=== PATIENT | female | born 1955 | race African-American/Black ===

== ENCOUNTER 2024-10-20 17:52 | Inpatient (IN) | payer MEDICARE ==
[~2024-10-20] VITALS: Ht 162.6 cm; Wt 68.0 kg
[2024-10-20] MEDS ORDERED: DEXTROSE 50% SYRINGE 50 ML IV ONE (18:54)
[2024-10-20] MEDS ORDERED: BACITRACIN ZINC 0.9GM TP ONE (19:43)
[2024-10-20] MEDS: DEXTROSE 50% SYRINGE 50 ML IV ONE (19:58)
[2024-10-20] MEDS: BACITRACIN ZINC 0.9GM TP ONE (20:06)
[2024-10-20 20:07] LABS: T3 UPTAKE 30.5 % (22.5-37.0)
[2024-10-20] MEDS ORDERED: LORAZEPAM INJ 2 MG/ML VIAL IM ONE (20:30)
[2024-10-20 21:00] VITALS: PULSE 74; RESP 18; TEMP 97.1
[2024-10-20] MEDS: LORAZEPAM INJ 2 MG/ML VIAL IM ONE (21:27)
[2024-10-20] MEDS: DEXTROSE 5%/0.9% SOD CHL 1,000 ML IV SCH (22:47)
[2024-10-20 22:58] VITALS: BP 101/81; PULSE 58; RESP 18; TEMP 96.8; O2SAT 100
[2024-10-21] VITALS (11 sets, daily range): BP systolic 101–194; BP diastolic 62–94; PULSE 51–87; RESP 16–18; TEMP 96.3–97.9; O2SAT 95–100
[2024-10-21] MEDS ORDERED: MIRALAX17 GM PO (01:36)
[2024-10-21] MEDS ORDERED: OLANZAPINE5 MG PO (01:36)
[2024-10-21] MEDS ORDERED: TRAZODONE HCL50 MG PO (01:36)
[2024-10-21] MEDS ORDERED: ACETAMINOPHEN325 M1 PO (01:36)
[2024-10-21] MEDS ORDERED: FUROSEMIDE20 MG PO (01:36)
[2024-10-21] MEDS ORDERED: HYDROCORTISONE5 MG PO (01:36)
[2024-10-21] MEDS ORDERED: LEVOTHYROXINE137 MCG PO (01:36)
[2024-10-21] MEDS ORDERED: CENTRUM ADULTS1 EACH PO (01:36)
[2024-10-21] MEDS ORDERED: VENELEX OINTMEN60 GM TOP (01:36)
[2024-10-21 05:39] LABS: BASOPHILS % 0.5 % (0.0-1.0); EOSINOPHILS % 2.0 % (0.0-6.0); LYMPHOCYTES % 38.4 % (18.0-39.1); MONOCYTES % 17.2 % (4.4-11.3); NEUTROPHILS % 41.9 % (38.7-80.0); RED CELL DISTRIBUTION WIDTH 15.1 % (11.7-14.4)
[2024-10-21 06:03] LABS: EST GLOMERULAR FILTRATION RATE 79.0 ML/MIN (>=60); PHOSPHORUS 2.1 MG/DL (2.3-4.7)
[2024-10-21] MEDS ORDERED: BACITRACIN ZINC 15 GM OINT TOP SCH (09:00)
[2024-10-21] MEDS: POTASSIUM CHLORIDE 20MEQ/100ML 100 ML IV SCH (10:02)
[2024-10-21 11:39] LABS: % IRON SATURATION 55.0 % (15-50)
[2024-10-21] MEDS: POTASSIUM CHL 40 MEQ in DEXTROSE 5%/0.45% SOD CHL 1,000 ML IV SCH (13:03)
[2024-10-21] MEDS: MAGNESIUM SULF 1GRAM/DEXTROSE 100 ML IV ONE (13:07)
[2024-10-21] MEDS: DEXTROSE 50% SYRINGE 50 ML IV PRN (15:07)
[2024-10-21] MEDS: DEXTROSE 50% SYRINGE 50 ML IV ONE (15:49)
[2024-10-21 16:27] LABS: EST GLOMERULAR FILTRATION RATE 76.0 ML/MIN (>=60)
[2024-10-21 17:43] LABS: AMPHETAMINES SCREEN,URINE NEGATIVE (NEGATIVE); CANNABINOIDS SCREEN,URINE NEGATIVE (NEGATIVE); COCAINE SCREEN,URINE NEGATIVE (NEGATIVE); METHADONE SCREEN, URINE NEGATIVE (NEGATIVE); OPIATES SCREEN,URINE NEGATIVE (NEGATIVE)
[2024-10-21 17:53] LABS: LEUKOCYTE ESTERASE ,URINE TRACE (NEGATIVE); PROTEIN,URINE DIPSTICK 1+ (NEGATIVE); URINE UROBILINOGEN 0.2 mg/dL (0.2 - 1)
[2024-10-21 18:00] LABS: WBC,URINE (MAN) 0-5 /HPF (0-5)
[2024-10-21 18:01] LABS: EPITHELIAL CELLS,URINE RARE /LPF; YEAST,URINE FEW
[2024-10-22] VITALS: BP 147/83; PULSE 57; RESP 17; TEMP 97.9; O2SAT 98
[2024-10-22 04:00] VITALS: BP 142/78; PULSE 64; RESP 18; TEMP 97.6; O2SAT 100
[2024-10-22] MEDS: DEXTROSE 50% SYRINGE 50 ML IV ONE (04:49)
[2024-10-22 05:37] LABS: BASOPHILS % 0.5 % (0.0-1.0); EOSINOPHILS % 1.8 % (0.0-6.0); LYMPHOCYTES % 39.2 % (18.0-39.1); MONOCYTES % 9.0 % (4.4-11.3); NEUTROPHILS % 49.5 % (38.7-80.0); RED CELL DISTRIBUTION WIDTH 15.4 % (11.7-14.4)
[2024-10-22 05:55] LABS: EST GLOMERULAR FILTRATION RATE 82.0 ML/MIN (>=60)
[2024-10-22 08:00] VITALS: BP_SYST 140; BP_SYST 142; BP_DIAS 78; BP_DIAS 85; PULSE 53; PULSE 64; RESP 16; RESP 18; TEMP 96; TEMP 97.6; O2SAT 100
[2024-10-22] MEDS: POTASSIUM CHLORIDE 40 MEQ in DEXTROSE 5%/0.45% SOD CHL 1,000 ML IV SCH (08:00)
[2024-10-22 12:00] VITALS: BP 134/81; PULSE 55; RESP 16; TEMP 94.9; O2SAT 100
[2024-10-22] MEDS: POTASSIUM CHLORIDE 20 MEQ TAB CR PO STA ×2 (15:55→16:00)
[2024-10-22 20:00] VITALS: BP 145/89; PULSE 60; RESP 18; TEMP 97.9; O2SAT 100
[2024-10-23] VITALS: BP 153/93; PULSE 56; RESP 18; TEMP 97.6; O2SAT 100
[2024-10-23 04:00] VITALS: BP 135/97; PULSE 52; RESP 20; TEMP 97; O2SAT 100
[2024-10-23 08:00] VITALS: BP 143/91; PULSE 51; RESP 16; O2SAT 100
[2024-10-23 08:23] VITALS: BP 135/97; PULSE 52; RESP 20; TEMP 97; O2SAT 100
[2024-10-23] MEDS ORDERED: LEVOTHYROXINE SODIUM 112 MCG TAB PO SCH (09:30)
[2024-10-23] MEDS: LEVOTHYROXINE SODIUM 112 MCG TAB PO SCH (09:52)
[2024-10-23] MEDS: LEVOTHYROXINE SODIUM 25 MCG TABLET PO SCH (09:52)
[2024-10-23 12:00] VITALS: BP 131/86; PULSE 56; RESP 18; TEMP 98.2; O2SAT 100
[2024-10-23 16:00] VITALS: BP 173/98; PULSE 61; RESP 20; O2SAT 100
[2024-10-23] MEDS: ONDANSETRON HCL 4 MG ORAL DISINTEGRATING TAB PO PRN (18:50)
[2024-10-24 04:51] VITALS: BP 119/65; PULSE 61; RESP 16; TEMP 97.4; O2SAT 100
[2024-10-24 06:30] LABS: EST GLOMERULAR FILTRATION RATE 92.0 ML/MIN (>=60)
[2024-10-24 08:00] VITALS: BP 119/65; PULSE 61; RESP 16; TEMP 97.4; O2SAT 100
[2024-10-24] MEDS: DEXTROSE 5%/0.45% SOD CHL 1,000 ML IV SCH (08:33)
[2024-10-24] MEDS: ENOXAPARIN SOD INJ 40 MG/0.4 ML SYR SC SCH (08:49)
[2024-10-24 09:24] VITALS: BP 117/94; PULSE 64; RESP 18; TEMP 97.2; O2SAT 99
[2024-10-24 11:52] VITALS: BP 146/93; PULSE 69; RESP 18; TEMP 97.3; O2SAT 99
[2024-10-24] MEDS: DEXTROSE 37.5 GM GEL..GRAM. PO SCH (12:00)
[2024-10-24 16:52] VITALS: BP 168/103; PULSE 57; RESP 18; TEMP 97.2; O2SAT 99
[2024-10-24 17:46] LABS: BASOPHILS % 0.5 % (0.0-1.0); EOSINOPHILS % 2.0 % (0.0-6.0); LYMPHOCYTES % 35.1 % (18.0-39.1); MONOCYTES % 5.9 % (4.4-11.3); NEUTROPHILS % 56.5 % (38.7-80.0); RED CELL DISTRIBUTION WIDTH 15.2 % (11.7-14.4)
[2024-10-24 20:00] VITALS: BP 149/98; PULSE 60; RESP 18; TEMP 97; O2SAT 100
[2024-10-25] VITALS: BP 178/102; PULSE 63; RESP 18; TEMP 97.6; O2SAT 96
[2024-10-25 04:00] VITALS: BP 152/84; PULSE 57; RESP 18; TEMP 97.9; O2SAT 99
[2024-10-25] MEDS: LEVOTHYROXINE SODIUM 50 MCG TAB PO SCH (06:43)
[2024-10-25 07:58] LABS: BASOPHILS % 0.5 % (0.0-1.0); EOSINOPHILS % 1.6 % (0.0-6.0); LYMPHOCYTES % 52.6 % (18.0-39.1); MONOCYTES % 6.8 % (4.4-11.3); NEUTROPHILS % 38.5 % (38.7-80.0); RED CELL DISTRIBUTION WIDTH 15.3 % (11.7-14.4)
[2024-10-25 08:00] VITALS: BP 167/113; PULSE 62; RESP 21; O2SAT 100
[2024-10-25 08:31] LABS: EST GLOMERULAR FILTRATION RATE 91 ML/MIN (>=60)
[2024-10-25 09:00] VITALS: BP 152/84; PULSE 57; RESP 18; TEMP 97.9; O2SAT 99
[2024-10-25 09:53] LABS: EOSINOPHILS % (MANUAL) 3 % (0-7); LYMPHOCYTES % (MANUAL) 56 % (19-48); MONOCYTES % (MANUAL) 4 % (3.4-9.0); NEUTROPHILS % (MANUAL) 37 % (40-74)
[2024-10-25 09:54] LABS: PLATELET ESTIMATE SLIGHTLY DECREASED; PLATELET MORPHOLOGY COMMENT NORMAL
[2024-10-25] MEDS: HYDRALAZINE HCL 10 MG TAB PO PRN (10:00)
[2024-10-25 12:00] VITALS: BP 151/98; PULSE 61; RESP 18; O2SAT 100
[2024-10-25] MEDS ORDERED: LANCET 30G-GLU1 EACH (17:57)
[2024-10-25] MEDS ORDERED: ACCU-CHEK GUID1 EAC2 SC (17:57)
[2024-10-25] MEDS ORDERED: GLUTOSE 1537.5 GM PO (17:57)
[2024-10-26 11:47] LABS: INSULIN 2.2 uIU/mL (2.6-24.9)
== END 2024-10-25 19:44 | disposition home health service (06) | DRG 640 ==
LOC: FSED 17:58 → ERHOLD 21:00 → MED/SURG 22:41
PROVIDERS: ADMIT Family Medicine Adult Medicine; ATTEND Family Medicine Adult Medicine
PROC: 02HV33Z Insertion of Infusion Device into Superior Vena Cava, Percutaneous Approach (ICD-10-PCS; principal; 2024-10-25)
DX: E16.2 Hypoglycemia, unspecified (principal); G93.41 Metabolic encephalopathy; D61.818 Other pancytopenia; R63.0 Anorexia; R29.6 Repeated falls; F20.9 Schizophrenia, unspecified; E03.9 Hypothyroidism, unspecified; I89.0 Lymphedema, not elsewhere classified; R74.8 Abnormal levels of other serum enzymes; R53.81 Other malaise; Z99.3 Dependence on wheelchair; Z68.25 Body mass index [BMI] 25.0-25.9, adult; Z79.890 Hormone replacement therapy
CPT/HCPCS: 36415; 71045; 80048; 80053; 80076; 80307; 81001; 82024; 82533; 82550; 82607; 82728; 82746; 82948; 83036; 83525; 83540; 83735; 84100; 84206; 84436; 84443; 84466; 84479; 84484; 84681; 85025; 85045; 93005; 94799; 99252; 99284; J1650; J2060; J3475; J3480; J7042; J7799; Q0162